=== PATIENT | male | born 1940 | race Caucasian/White ===

== ENCOUNTER 2019-07-12 09:42 | Emergency (ER) | payer MEDICARE, OTHER ==
[~2019-07-12] VITALS: Ht 167.6 cm; Wt 63.5 kg
[~2019-07-12 09:42] MED LIST: ASPIRIN; ATORVASTATIN CA40 MG PO; CARVEDILOL; CARVEDILOL25 MG PO; CARVEDILOL6.25 MG PO; CITALOPRAM; CITALOPRAM HBR40 MG PO; CLINDAMYCIN; CLOPIDOGREL75 MG PO; ECOTRIN325 MG PO; FISH OIL; FLAGYL250 MG PO; FLAGYL500 MG PO; Gabapentin PO; HYDROCODONE; ISOSORBIDE; ISOSORBIDE MONO30 M1 PO; LISINOPRIL; LOSARTAN POTASS50 MG PO; MUPIROCIN TOP; NITROGLYCERIN; NITROSTAT0.4 MG PO; PREDNISONE20 MG PO; SIMVASTATIN; TYLENOL WITH C1 EACH PO; ZOLPIDEM PO
[2019-07-12] MEDS ORDERED: CARVEDILOL3.125 MG PO (09:57)
[2019-07-12 10:07] LABS: BILIRUBIN,URINE NEGATIVE (NEGATIVE); CLARITY,URINE CLEAR (CLEAR); COLOR,URINE YELLOW (YELLOW); KETONES,URINE NEGATIVE (NEGATIVE); LEUKOCYTE ESTERASE ,URINE NEGATIVE (NEGATIVE); NITRITE,URINE NEGATIVE (NEGATIVE); PROTEIN,URINE DIPSTICK NEGATIVE (NEGATIVE); URINE UROBILINOGEN 0.2 mg/dL (0.2 - 1)
--- NOTE | 2019-07-12 10:22 | NUR ---
patient was able to void in urinal. About 100cc of clear light yellow urine was in the urinal. Sample obtained and sent to lab. Post void residual bladder scan performed with the average result of less than 25cc. Dr. Melo in the room to evaluate the patient.
[2019-07-12 10:28] LABS: BACTERIA,URINE FEW /HPF; EPITHELIAL CELLS,URINE FEW /LPF; MUCUS,URINE RARE (RARE); RBC,URINE 0-5 /HPF (0-5)
--- NOTE | 2019-07-12 11:58 | Diagnostic Imaging Report ---
Exam: KUB - 2 views Indication: Constipation Comparison: None Findings: Nonobstructive bowel gas pattern. Mild to moderate stool burden throughout the colon. No free air. Kissing bilateral iliac stents. Surgical clips in the pelvis. Phleboliths in the pelvis. Mild degenerative changes of the visualized spine and both hip joints. Impression: Nonobstructive bowel gas pattern. Mild to moderate stool burden throughout the colon. Signed by: Raffy Elliott MD on 07/12/2019 11:55 AM
[2019-07-12] MEDS ORDERED: DOCUSATE SODIUM 100 MG CAP PO ONE (12:45)
[2019-07-12] MEDS ORDERED: LACTULOSE SYRUP 20 GM/30 ML UDC PO ONE (12:45)
== END 2019-07-12 13:07 | disposition home or self-care (01) ==
LOC: ER 09:42
DX: K59.00 Constipation, unspecified (principal); R39.15 Urgency of urination; I51.9 Heart disease, unspecified; F17.210 Nicotine dependence, cigarettes, uncomplicated
CPT/HCPCS: 74019; 81001; 99284

== ENCOUNTER 2019-10-28 05:27 | Emergency (ER) | payer MEDICARE ==
[~2019-10-28] VITALS: Ht 167.6 cm; Wt 63.5 kg
[~2019-10-28 05:27] MED LIST changes: +CARVEDILOL3.125 MG PO
--- OUTSIDE RECORDS SUMMARY | 2019-10-28 05:31 | XMS REPORT ---
Author Author [facility] Address Unknown Phone Unavailable Care Team Providers Care Management Recruiter Name Role Phone Kayy SIMMS Unavailable Unavailable Problems This patient has no known problems. Allergies, Adverse Reactions, Alerts This patient has no known allergies or adverse reactions. Medications This patient has no known medications. Results Test Description Test Time Test Comments Text Results Atomic Results Result Comments ABDOMEN 2 VIEW 2019-07-12 11:53:00 [place] [id number] Patient Name: RUSS CASTELLON MR #: [id number] : 1940 Age/Sex: 79/M Req #: [id number] Adm Physician: Ordered by: JERED SIMMS MD Report #: [id number] Location: ER Room/Bed: Procedure: [id number] DX/ABDOMEN 2 VIEW Exam Date: 07/12/19 Exam Time: 1100 REPORT STATUS: Signed Exam: KUB - 2 views Indication: Constipation Com parison: None Findings: Nonobstructive bowel gas pattern. Mild to moderate stool burden throughout the colon. No free air. Kissing bilateral iliac stents. Surgical clips in the pelvis. Phleboliths in the pelvis. Mild degenerative changes of the visualized spine and both hip joints. Impression: Nonobstructive bowel gas pattern. Mild to moderate stool burden throughout the colon. Signed by: Augusta Elliott MD on 07/12/2019 11:55 AM Dictated By: AUGUSTA ELLIOTT MD [id number] Transcribed By: AURELIA on 07/12/19 1154 COPY TO: JERED SIMMS MD
[2019-10-28 06:12] VITALS: BP 138/55
--- NOTE | 2019-10-28 06:12 | Diagnostic Imaging Report ---
X-ray pelvis 1 view and right hip 2 views HISTORY: Pain. COMPARISON: None available. FINDINGS: Bones: No acute displaced fracture. Osseous alignment is within normal limits. Joints: The joint spaces are well-maintained. Degenerative changes in the spine hips and pelvis. Soft tissues: Enthesopathic changes at the right greater trochanter. Vascular stents project in the lower abdomen. IMPRESSION: No acute radiographic osseous abnormality. Enthesopathic changes at the right greater trochanter. Degenerative changes in the spine hips and pelvis. Signed by: Augie Shin DO on 10/28/2019 6:10 AM
== END 2019-10-28 06:17 | disposition home or self-care (01) ==
LOC: ER 05:27
DX: M25.551 Pain in right hip (principal); M70.71 Other bursitis of hip, right hip; I10 Essential (primary) hypertension; E78.5 Hyperlipidemia, unspecified; I25.2 Old myocardial infarction; Z95.1 Presence of aortocoronary bypass graft
CPT/HCPCS: 99283

== ENCOUNTER 2021-07-24 21:31 | Inpatient (IN) | payer MEDICARE ==
[~2021-07-24] VITALS: Ht 167.6 cm; Wt 63.5 kg
[2021-07-24 21:54] LABS: BASOPHILS # (AUTO) 0.1 (0.0-0.1); BASOPHILS % 1.1 % (0.0-1.0); EOSINOPHILS # (AUTO) 0.4 (0.0-0.4); EOSINOPHILS % 6.5 % (0.0-6.0); HEMATOCRIT 35.8 % (38.2-49.6); HEMOGLOBIN 12.2 g/dL (14.0-18.0); LYMPHOCYTES # (AUTO) 1.6 (1.0-3.2); LYMPHOCYTES % 28.5 % (18.0-39.1); MEAN CORPUSCULAR HEMOGLOBIN 35.3 pg (28-32); MEAN CORPUSCULAR HGB CONC 34.1 g/dL (31-35); MEAN CORPUSCULAR VOLUME 103.5 fL (81-99); MONOCYTES # (AUTO) 0.6 (0.2-0.8); MONOCYTES % 10.9 % (4.4-11.3); NEUTROPHILS # (AUTO) 2.9 (2.1-6.9); NEUTROPHILS % 52.6 % (38.7-80.0); PLATELET COUNT 188 x10e3/uL (140-360); RED BLOOD COUNT 3.46 x10e6/uL (4.3-5.7); RED CELL DISTRIBUTION WIDTH 13.1 % (11.7-14.4)
[2021-07-24 22:04] LABS: ALBUMIN 3.5 g/dL (3.5-5.0); ALBUMIN/GLOBULIN RATIO 1.1 (0.8-2.0); ANION GAP 16.9 mmol/L (8-16); CALCIUM 9.3 mg/dL (8.4-10.2); CREATININE, SERUM 0.95 mg/dL (0.72-1.25); POTASSIUM 3.9 mmol/L (3.5-5.1)
[2021-07-24 22:07] LABS: CREATINE KINASE MB 8.7 ng/mL (0-4.3)
[2021-07-24] MEDS ORDERED: HYDROCODONE/APAP 7.5MG-325MG 1 EA TAB PO ONE (22:45)
[2021-07-24] MEDS ORDERED: HYDROCODONE/APAP 7.5MG-325MG 1 EA TAB ONE (22:48)
[2021-07-25] VITALS (24 sets, daily range): BP systolic 117–189; BP diastolic 49–83
[2021-07-25] MEDS ORDERED: NITROGLYCERIN 2% OINT 1 GM PKT TOP ONE
[2021-07-25] MEDS ORDERED: ONDANSETRON HCL INJ 2MG/ML 2ML 2 MG/ML VIAL IV PRN ×3 (00:15→15:00)
[2021-07-25 00:58] LABS: CREATINE KINASE MB 18.7 ng/mL (0-5.0)
[2021-07-25] MEDS ORDERED: CLOPIDOGREL BISULFATE 75 MG TAB PO ONE ×4 (01:15→02:15)
[2021-07-25] MEDS: Morphine 2mg Syringe 2 MG/ML SYR IV PRN ×3 (02:00→14:39)
[2021-07-25] MEDS ORDERED: NITROGLYCERIN 2% OINT 1 GM PKT TOP SCH (06:00)
[2021-07-25] MEDS ORDERED: SODIUM CHLORIDE 0.9% 1000ML 1,000 ML IV SCH (06:45)
[2021-07-25] MEDS: HYDRALAZINE HCL 20 MG/ML VIAL IV PRN ×2 (06:56→14:00)
[2021-07-25] MEDS ORDERED: SODIUM CHLORIDE 0.9% 1000ML 1,000 ML ONE ×2 (06:59→10:08)
[2021-07-25] MEDS ORDERED: CLOPIDOGREL BISULFATE 75 MG TAB PO SCH (09:00)
[2021-07-25] MEDS: ASPIRIN 81 MG ENTERIC COATED PO SCH (09:00)
[2021-07-25] MEDS ORDERED: MIDAZOLAM HCL 2 MG/2 ML VIAL ONE (10:07)
[2021-07-25] MEDS ORDERED: HEPARIN SOD (PORCINE) 1000 UNIT/ML 30ML ONE (10:07)
[2021-07-25] MEDS ORDERED: HEPARIN SOD/SOD CHLORIDE 2,000 ML ONE (10:08)
[2021-07-25] MEDS ORDERED: IOPAMIDOL 370 MG/ML 200 ML INFUS..BTL INJ ONE ×2 (10:08→11:38)
[2021-07-25] MEDS ORDERED: FENTANYL CITRATE/PF 100MCG/2 ML INJ ONE (10:08)
[2021-07-25] MEDS ORDERED: LIDOCAINE HCL 2% LOCAL 20 ML VIAL ONE (10:08)
[2021-07-25] MEDS ORDERED: NITROGLYCERIN/D5W 200 MCG/ML 250 ML ONE (10:08)
[2021-07-25] MEDS ORDERED: VERAPAMIL HCL 2.5 MG/ML 2 ML VIAL ONE (10:36)
[2021-07-25] MEDS ORDERED: SODIUM CHLORIDE 0.9% 50ML 50 ML ONE (10:57)
[2021-07-25] MEDS ORDERED: BIVALRIUDIN 250 MG/VIAL VIAL IV ONE (10:57)
[2021-07-25] MEDS ORDERED: HYDROCODONE/APAP 5MG-325MG TAB PO PRN (12:00)
[2021-07-25] MEDS: SODIUM CHLORIDE 0.9% 1000ML 1,000 ML IV SCH ×2 (13:40→22:08)
[2021-07-25] MEDS ORDERED: ACETAMINOPHEN/CODEINE 300MG - 30MG TAB PO PRN (15:00)
[2021-07-25] MEDS ORDERED: ACETAMINOPHEN 325 MG TAB PO PRN (15:00)
[2021-07-25] MEDS: METOPROLOL TARTRATE 25 MG TAB PO SCH (16:17)
[2021-07-25] MEDS ORDERED: NICOTINE 14 MG/EA PATCH TOP PRN (16:45)
[2021-07-25] MEDS ORDERED: LORAZEPAM INJ 2 MG/ML VIAL IV PRN (16:45)
[2021-07-25] MEDS: ATORVASTATIN 40 MG TAB PO SCH (22:08)
[2021-07-26] VITALS (19 sets, daily range): BP systolic 102–173; BP diastolic 54–87
[2021-07-26 06:30] LABS: BASOPHILS % 0.3 % (0.0-1.0); EOSINOPHILS % 0.2 % (0.0-6.0); HEMATOCRIT 35.3 % (38.2-49.6); HEMOGLOBIN 11.9 g/dL (14.0-18.0); LYMPHOCYTES # (AUTO) 0.9 (1.0-3.2); LYMPHOCYTES % 10.2 % (18.0-39.1); MEAN CORPUSCULAR HEMOGLOBIN 34.8 pg (28-32); MEAN CORPUSCULAR HGB CONC 33.7 g/dL (31-35); MEAN CORPUSCULAR VOLUME 103.2 fL (81-99); MONOCYTES # (AUTO) 0.8 (0.2-0.8); MONOCYTES % 9.3 % (4.4-11.3); NEUTROPHILS # (AUTO) 6.9 (2.1-6.9); NEUTROPHILS % 79.4 % (38.7-80.0); PLATELET COUNT 164 x10e3/uL (140-360); RED BLOOD COUNT 3.42 x10e6/uL (4.3-5.7); RED CELL DISTRIBUTION WIDTH 13.2 % (11.7-14.4)
[2021-07-26 06:58] LABS: ALBUMIN 3.1 g/dL (3.5-5.0); ALBUMIN/GLOBULIN RATIO 1.2 (0.8-2.0); ANION GAP 13.5 mmol/L (8-16); CALCIUM 7.7 mg/dL (8.4-10.2); CHOL/HDL RATIO 3.4 (3.9-4.7); CREATININE, SERUM 0.77 mg/dL (0.72-1.25); POTASSIUM 3.5 mmol/L (3.5-5.1)
[2021-07-26 07:18] LABS: THYROID STIMULATING HORMONE 0.925 uIU/mL (0.350-4.940)
[2021-07-26] MEDS: SODIUM CHLORIDE 0.9% 1000ML 1,000 ML IV SCH (07:28)
[2021-07-26] MEDS: LOSARTAN POTASSIUM 25 MG TAB PO SCH (08:10)
[2021-07-26] MEDS: ASPIRIN 81 MG ENTERIC COATED PO SCH (08:10)
[2021-07-26] MEDS: METOPROLOL TARTRATE 25 MG TAB PO SCH ×2 (08:11→16:43)
[2021-07-26] MEDS: CLOPIDOGREL BISULFATE 75 MG TAB PO SCH (08:11)
[2021-07-26] MEDS: ISOSORBIDE MONONITRATE 30 MG TAB CR PO SCH (08:11)
[2021-07-26] MEDS ORDERED: NON-FORMULARY MEDICATION (Losartan Potassium 50 MG) PO SCH (09:00)
[2021-07-26] MEDS: ATORVASTATIN 40 MG TAB PO SCH (20:36)
[2021-07-27 05:05] VITALS: BP 136/58
[2021-07-27 08:12] VITALS: BP 166/74
[2021-07-27 08:15] VITALS: BP 166/74
[2021-07-27] MEDS: LOSARTAN POTASSIUM 25 MG TAB PO SCH (09:06)
[2021-07-27] MEDS: ASPIRIN 81 MG ENTERIC COATED PO SCH (09:06)
[2021-07-27] MEDS: ISOSORBIDE MONONITRATE 30 MG TAB CR PO SCH (09:06)
[2021-07-27] MEDS: CLOPIDOGREL BISULFATE 75 MG TAB PO SCH (09:07)
[2021-07-27] MEDS: METOPROLOL TARTRATE 25 MG TAB PO SCH (09:07)
[2021-07-27 11:56] VITALS: BP 123/62
[2021-07-27] MEDS ORDERED: Atorvastatin PO (13:49)
== END 2021-07-27 14:22 | disposition home or self-care (01) | DRG 246 ==
LOC: ER 21:39 → ERHOLD 07-25 00:16 → OBSVTOIN 07-25 06:59 → ICU 07-25 13:41 → MED/SURG3 07-26 14:33
PROVIDERS: ADMIT Internal Medicine; ATTEND Internal Medicine
PROC: 027034Z Dilation of Coronary Artery, One Artery with Drug-eluting Intraluminal Device, Percutaneous Approach (ICD-10-PCS; principal; 2021-07-25)
PROC: 4A023N7 Measurement of Cardiac Sampling and Pressure, Left Heart, Percutaneous Approach (ICD-10-PCS; 2021-07-25)
PROC: B2131ZZ Fluoroscopy of Multiple Coronary Artery Bypass Grafts using Low Osmolar Contrast (ICD-10-PCS; 2021-07-25)
PROC: B2111ZZ Fluoroscopy of Multiple Coronary Arteries using Low Osmolar Contrast (ICD-10-PCS; 2021-07-25)
PROC: B2151ZZ Fluoroscopy of Left Heart using Low Osmolar Contrast (ICD-10-PCS; 2021-07-25)
DX: I21.4 Non-ST elevation (NSTEMI) myocardial infarction (principal); I50.23 Acute on chronic systolic (congestive) heart failure; I47.2 Ventricular tachycardia; F17.210 Nicotine dependence, cigarettes, uncomplicated; F10.20 Alcohol dependence, uncomplicated; Z95.5 Presence of coronary angioplasty implant and graft; Z95.1 Presence of aortocoronary bypass graft; Z95.820 Peripheral vascular angioplasty status with implants and grafts; H91.90 Unspecified hearing loss, unspecified ear; E78.5 Hyperlipidemia, unspecified; I11.0 Hypertensive heart disease with heart failure; Z20.822 Contact with and (suspected) exposure to COVID-19
CPT/HCPCS: 36415; 71045; 80053; 80061; 82550; 82553; 83735; 84443; 84484; 85025; 92928; 93005; 93306; 93459; 94799; 96360; 99152; 99153; 99284; J0360; J0583; J1644; J2001; J2060; J2250; J2270; J2405; J3010; J7030; Q9967; U0002

== ENCOUNTER 2023-09-15 15:49 | Emergency (ER) | payer MEDICARE ==
[~2023-09-15] VITALS: Ht 167.6 cm; Wt 63.5 kg
[~2023-09-15 15:49] MED LIST changes: +Atorvastatin PO
[2023-09-15 16:41] LABS: BASOPHILS % 0.7 % (0.0-1.0); EOSINOPHILS # (AUTO) 0.4 (0.0-0.4); EOSINOPHILS % 7.1 % (0.0-6.0); HEMATOCRIT 35.8 % (38.2-49.6); LYMPHOCYTES # (AUTO) 1.2 (1.0-3.2); LYMPHOCYTES % 19.4 % (18.0-39.1); MEAN CORPUSCULAR HEMOGLOBIN 34.9 pg (28-32); MEAN CORPUSCULAR HGB CONC 33.5 g/dL (31-35); MEAN CORPUSCULAR VOLUME 104.1 fL (81-99); MONOCYTES # (AUTO) 0.5 (0.2-0.8); MONOCYTES % 7.6 % (4.4-11.3); NEUTROPHILS % 64.9 % (38.7-80.0); PLATELET COUNT 199 x10e3/uL (140-360); RED BLOOD COUNT 3.44 x10e6/uL (4.3-5.7); RED CELL DISTRIBUTION WIDTH 13.1 % (11.7-14.4); WHITE BLOOD COUNT 6.09 x10e3/uL (4.8-10.8)
[2023-09-15 17:00] LABS: ALBUMIN 3.6 g/dL (3.5-5.0); ANION GAP 15.5 mmol/L (8-16); BILIRUBIN,TOTAL 0.8 mg/dL (0.2-1.2); CALCIUM 9.1 mg/dL (8.4-10.2); CREATININE, SERUM 1.5 mg/dL (0.72-1.25); POTASSIUM 4.5 mmol/L (3.5-5.1); TOTAL PROTEIN 7.2 g/dL (6.5-8.1)
[2023-09-15 19:37] VITALS: BP 158/65; PULSE 56; RESP 14; O2SAT 97
== END 2023-09-15 19:47 | disposition home or self-care (01) ==
LOC: ER 15:53
DX: Z01.30 Encounter for examination of blood pressure without abnormal findings (principal); R42 Dizziness and giddiness; I10 Essential (primary) hypertension; E78.5 Hyperlipidemia, unspecified; Z11.52 Encounter for screening for COVID-19; I25.2 Old myocardial infarction; Z95.5 Presence of coronary angioplasty implant and graft
CPT/HCPCS: 36415; 71045; 80053; 83880; 84484; 85025; 99284; U0002

== ENCOUNTER 2024-08-20 12:31 | Emergency (ER) | payer MEDICARE ==
[~2024-08-20] VITALS: Ht 167.6 cm; Wt 59.0 kg
[~2024-08-20 12:31] MED LIST changes: +ASPIRIN81 MG PO; +DOXYCYCLINE HY100 MG PO; +VENTOLIN HFA18 GM INH
[2024-08-20 13:18] LABS: BASOPHILS % 0.6 % (0.0-1.0); EOSINOPHILS # (AUTO) 0.1 (0.0-0.4); EOSINOPHILS % 1.6 % (0.0-6.0); HEMATOCRIT 34.9 % (38.2-49.6); HEMOGLOBIN 11.9 g/dL (14.0-18.0); LYMPHOCYTES # (AUTO) 0.9 (1.0-3.2); LYMPHOCYTES % 13.2 % (18.0-39.1); MEAN CORPUSCULAR HEMOGLOBIN 35.4 pg (28-32); MEAN CORPUSCULAR HGB CONC 34.1 g/dL (31-35); MEAN CORPUSCULAR VOLUME 103.9 fL (81-99); MONOCYTES # (AUTO) 0.6 (0.2-0.8); MONOCYTES % 9.2 % (4.4-11.3); NEUTROPHILS % 73.6 % (38.7-80.0); PLATELET COUNT 134 x10e3/uL (140-360); RED BLOOD COUNT 3.36 x10e6/uL (4.3-5.7); RED CELL DISTRIBUTION WIDTH 15.6 % (11.7-14.4); WHITE BLOOD COUNT 6.75 x10e3/uL (4.8-10.8)
[2024-08-20 13:36] LABS: CORONAVIRUS COVID-19 AG NEGATIVE (NEGATIVE); INFLUENZA A AG NEGATIVE (NEGATIVE); INFLUENZA B AG NEGATIVE (NEGATIVE)
[2024-08-20 13:38] LABS: ALBUMIN 2.8 g/dL (3.5-5.0); ALBUMIN/GLOBULIN RATIO 0.6 (0.8-2.0); ANION GAP 15.7 mmol/L (8-16); BILIRUBIN,TOTAL 0.5 mg/dL (0.2-1.2); CREATININE, SERUM 1.17 mg/dL (0.72-1.25); POTASSIUM 3.7 mmol/L (3.5-5.1); TOTAL PROTEIN 7.5 g/dL (6.5-8.1)
[2024-08-20 13:44] LABS: TROPONIN I 0.07 ng/mL (0-0.300)
[2024-08-20 15:08] VITALS: PULSE 82; RESP 16; TEMP 98.1
[2024-08-20] MEDS ORDERED: DOXYCYCLINE HY100 MG PO (15:45)
[2024-08-20] MEDS ORDERED: AMOX TR-K CLV1 EAC2 PO (15:45)
[2024-08-20 16:24] VITALS: BP 153/92; PULSE 88; RESP 18; TEMP 98; O2SAT 98
== END 2024-08-20 16:26 | disposition home or self-care (01) ==
LOC: ER 12:48
DX: R05.9 Cough, unspecified (principal); J18.9 Pneumonia, unspecified organism; I10 Essential (primary) hypertension; E78.5 Hyperlipidemia, unspecified; I25.10 Atherosclerotic heart disease of native coronary artery without angina pectoris; I25.2 Old myocardial infarction; Z95.5 Presence of coronary angioplasty implant and graft; Z95.1 Presence of aortocoronary bypass graft
CPT/HCPCS: 36415; 71046; 80053; 82550; 84484; 85025; 99284

== ENCOUNTER 2024-11-08 05:21 | Emergency (ER) | payer MEDICARE ==
[~2024-11-08] VITALS: Ht 167.6 cm; Wt 58.1 kg
[2024-11-08 05:21] VITALS: TEMP 98
[~2024-11-08 05:21] MED LIST changes: +AMOX TR-K CLV1 EAC2 PO
[2024-11-08] MEDS: HYDROCODONE/APAP 5MG-325MG TAB PO ONE (05:43)
[2024-11-08 06:30] VITALS: PULSE 63; RESP 18; O2SAT 100
[2024-11-08] MEDS ORDERED: ULTRAM 50MG50 MG PO (07:04)
[2024-11-08] MEDS ORDERED: NAPROXEN250 MG PO (07:06)
== END 2024-11-08 08:06 | disposition home or self-care (01) ==
LOC: ER 05:28
DX: S62.161A Displaced fracture of pisiform, right wrist, initial encounter for closed fracture (principal); W01.0XXA Fall on same level from slipping, tripping and stumbling without subsequent striking against object, initial encounter; Y93.01 Activity, walking, marching and hiking; Y92.89 Other specified places as the place of occurrence of the external cause; I10 Essential (primary) hypertension; E78.5 Hyperlipidemia, unspecified; I25.10 Atherosclerotic heart disease of native coronary artery without angina pectoris; I25.2 Old myocardial infarction; Z95.1 Presence of aortocoronary bypass graft
CPT/HCPCS: 99284